=== PATIENT | male | born 1990 | race Caucasian/White ===

== ENCOUNTER 2016-07-18 03:19 | Emergency (ER) | payer OTHER ==
[~2016-07-18] VITALS: Ht 157.5 cm; Wt 65.9 kg
[~2016-07-18 03:19] MED LIST: SULF1TAB7 PO
[2016-07-18 03:25] VITALS: BP 134/77; PULSE 71; RESP 16; O2SAT 99
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
[2016-07-18] MEDS ORDERED: 0.9% Sodium Chloride 1,000 ML IV ONE (03:44)
[2016-07-18] MEDS ORDERED: HYDROmorphone 1 mg/mL Inj IVPUSH PRN (03:45)
[2016-07-18] MEDS ORDERED: Pantoprazole 4 mg/mL 10 mL Inj IVPUSH ONE (03:45)
[2016-07-18] MEDS ORDERED: Alum-Mag Hydrox-Simeth 30 mL Suspension PO ONE (03:45)
[2016-07-18] MEDS ORDERED: Ondansetron 2 mg/mL 2 mL Inj IVPUSH ONE (03:45)
[2016-07-18 03:55] LABS: BASOPHILS % (AUTO) 0.2 % (0-3); EOSINOPHILS % (AUTO) 1.5 % (0-5); MONOCYTES % (AUTO) 8.1 % (4-12); Mean Corpuscular Hemoglobin 30.3 pg (27.0-35.0); Mean Corpuscular Volume 88.8 fL (81-100); NEUTROPHILS % (AUTO) 62.3 % (40-74); Platelet Count 303 bil/L (150-400)
[2016-07-18 04:15] LABS: INR 0.87 ratio
[2016-07-18 04:20] LABS: Magnesium 2.1 mg/dL (1.6-2.6)
[2016-07-18] MEDS ORDERED: OMEP20TA86 PO (05:25)
[2016-07-18] MEDS ORDERED: ONDA8TAB10 PO (05:25)
[2016-07-18 05:53] VITALS: BP 122/84; PULSE 62; RESP 24; O2SAT 98
== END 2016-07-18 05:54 | disposition home or self-care (01) ==
LOC: SED 03:19
DX: K29.70 Gastritis, unspecified, without bleeding (principal); F17.200 Nicotine dependence, unspecified, uncomplicated; J45.909 Unspecified asthma, uncomplicated; Z59.0 Homelessness; Z88.0 Allergy status to penicillin; Z88.6 Allergy status to analgesic agent; Z88.8 Allergy status to other drugs, medicaments and biological substances
CPT/HCPCS: 36415; 80053; 83690; 83735; 85025; 85610; 96374; 96375; 99284; J1170; J2405; J7030

== ENCOUNTER 2017-04-04 13:58 | Emergency (ER) | payer OTHER ==
[~2017-04-04] VITALS: Ht 157.5 cm; Wt 63.6 kg
[~2017-04-04 13:58] MED LIST changes: +OMEP20TA86 PO; +ONDA8TAB10 PO
[2017-04-04 14:00] VITALS: BP 130/65; PULSE 92; RESP 18; O2SAT 99
--- NOTE | 2017-04-04 15:14 | ED.REPORT ---
HPI-Extremity Problem Upper Date of Service Apr 04, 2017 ED Provider: Kandace Mortensen History of Present Illness: seen at urgent care yesterday started on bactrim. feels the area on his arm are abscesses. Was only given robaxin. Last used meth 2 days ago Nursing Notes Stated Complaint: LEFT ARM PAIN Chief Complaint: Extremity Trauma Nursing Notes Reviewed: Yes Allergies: Coded Allergies: Shellfish (Verified Allergy, Severe, "will kill me", 07/18/16) Penicillins (Verified Allergy, Intermediate, rash, 07/18/16) aspirin (Verified Allergy, Intermediate, rash, 07/18/16) naproxen (Verified Allergy, Intermediate, rash, 07/18/16) ibuprofen (Verified Allergy, Unknown, 07/18/16) serious migraine Scheduled Omeprazole (Omeprazole) 20 Mg Tablet.dr 20 MG PO BID Sulfamethoxazole/Trimeth 800-160 mg (Bactrim DS) 1 Each Tablet 1 EACH PO BID Scheduled PRN Ondansetron ODT (Ondansetron ODT) 8 Mg Tab.rapdis 8 MG PO QID PRN PRN For Nausea General Time Seen by MD: 14:58 Chief Complaint Other (abrasions on arms) Hx Obtained From: Patient Onset Occurred: More than a week ago... (1 month) Symptom Duration: Since onset Past Medical History Past Medical History Asthma Chronic back pain Past Surgical History denies Family History Noncontributory Smoking History Current Every Day Smoker Social History using drugs 04/04/2017 Alcohol Use: Denies alcohol use Drug Use: Meth Other Social History: Local resident Occupation homeless 06/29/2016 Ambulatory Status Independent Review of Systems Basic Review of Systems Eyes: Vision NL, No discharge Hematologic: No bleeding, No bruising Psychiatric: Normal thought content Physical Exam Initial Vital Signs Vital Signs (First) Date Time Temp Pulse Resp B/P Pulse Ox O2 Delivery O2 Flow Rate FiO2 04/04/17 14:00 36.6 92 18 130/65 99 Room Air Initial VS: Reviewed, Vital signs normal General/Constitutional: Well-developed, Well-nourished Head / Eyes: Atraumatic, Normocephalic, PERRL ENT: Mucous membranes moist, Conjunctiva normal, No scleral icterus Neck: Supple, Non-tender, Full range of motion Respiratory: Breath sounds normal, Clear to auscultation, No respiratory distress Cardiovascular: Regular rate & rhythm, Heart sounds normal, Intact distal pulses Abdomen / GI: Soft, Non-tender, No guarding, No rebound, No distention Back: No CVA tenderness Lymphatic: No lymphadenopathy Lower Extremities: Vascular intact, Neuro intact, No swelling, No tenderness Skin: Warm, Dry, No cyanosis Neurologic: Alert, Oriented, Nonfocal Psychiatric: Mood/affect normal, Behavior normal, Normal thought content General/Constitutional: Awake, Alert, No acute distress sleeping in the c[place]ir but wakes with stimulus Respiratory / Chest: Atraumatic, Breath sounds NL, Breath sounds = bilat, No respiratory distress Cardiovascular: Heart rate NL, Regular rhythm, Heart sounds NL, No gallop left arm has abrasion on upper ar, right arm has abrasion at wrist area. No active bleeding, no erthyma, no sign of infection. Has full range of motion, sensation intact distally, cap refill less than 2 sec. Interpretation & Diagnostics Lab Results Interpretation Result Diagram: 04/04/17 1540 04/04/17 1540 Test 04/04/17 15:40 White Blood Count 8.4th/mm3 (3.8-10.1) Red Blood Count 4.56mil/mm3 (4.40-5.80) Hemoglobin 13.9g/dL (13.8-17.2) Hematocrit 40.6% (41.0-50.0) Mean Corpuscular Volume 89.0fL (81-100) Mean Corpuscular Hemoglobin 30.5pg (27.0-35.0) Mean Corpuscular Hemoglobin Concent 34.2% (32.0-37.0) Red Cell Distribution Width 12.7% (12.3-15.4) Platelet Count 273bil/L (150-400) Neutrophils (%) (Auto) 61.0% (40-74) Lymphocytes (%) (Auto) 29.3% (14-46) Monocytes (%) (Auto) 7.6% (4-12) Eosinophils (%) (Auto) 1.5% (0-5) Basophils (%) (Auto) 0.4% (0-3) Sodium Level 139mEq/L (134-144) Potassium Level 4.3mEq/L (3.5-5.2) Chloride Level 104mEq/L (97-108) Carbon Dioxide Level 22mmol/L (18-29) Blood Urea Nitrogen 14mg/dL (6-20) Creatinine 0.77mg/dL (0.76-1.27) Estimat Glomerular Filtration Rate 129mL/min (>59) Glucose Level 114mg/dL (60-99) Calcium Level 8.5mg/dL (8.5-10.1) Total Bilirubin 0.2mg/dL (0.0-1.2) Aspartate Amino Transf (AST/SGOT) 15U/L (0-50) Alanine Aminotransferase (ALT/SGPT) 17U/L (0-44) Alkaline Phosphatase 65U/L (25-150) Total Protein 6.6g/dL (6.4-8.4) Albumin 3.6g/dL (3.4-5.0) Hold Murray Top Tube Received (Received) Re-Eval/Medical Decision Med Decision/Clinical Course 26 year old presents to the ER for evualation of his "abscesses" States seen at the walk in clinic and only given robaxin. The areas in question are abrasions. No sign of infection. Labs are normal. No sign of compartment syndrome or sepsis Discharge & Departure Impression: Primary Impression: Abrasion Additional Impression: Drug abuse Disposition: Home Patient Instructions: Abrasion (ED) Additional Instructions: The areas on your arms at this time are not abscess. They are abrasions where the skin has been rubbed off. Use bactroban to the sites 2 to 3 times a day. You are also being provided some lidocaine gel to help with the discomfort. Opiates are not indicated for this. Your labs are normal. Please establish in primary care, consider the residency clinic. Please keep all the appointments that you need to get housing. Referrals: [facility] EDSupervising Provider for APC: Jase Huffman MD Attending Statement I saw and evaluated the patient in conjunction with the FLIPPING MACHINE OPERATOR. I agree with the plan and findings as documented above. In brief, 26-year-old male with a history of IV drug abuse presenting to the ED for evaluation lesion to his arm. Well appearing, no acute distress. Nonlabored respirations. Good peripheral perfusion. RRR. No fluctuance or induration, mild cellulitis. No SI/HI. Does not seem consistent with abscess. Given above, plan discharge home w/ careful return precautions, antibiotics, close outpatient follow up. Patient agreeable to plan as stated, no further questions. copies to: [facility] Kandace Mortensen Apr 04, 2017 15:14 Jase Huffman MD Apr 04, 2017 15:27
[2017-04-04] MEDS ORDERED: Mupirocin 2% 22 Gm Ointment TOPICAL ONE (15:30)
[2017-04-04 15:58] LABS: BASOPHILS % (AUTO) 0.4 % (0-3); EOSINOPHILS % (AUTO) 1.5 % (0-5); MONOCYTES % (AUTO) 7.6 % (4-12); Mean Corpuscular Hemoglobin 30.5 pg (27.0-35.0); Platelet Count 273 bil/L (150-400)
[2017-04-04 16:28] VITALS: BP 125/80; PULSE 86; RESP 18; O2SAT 98
== END 2017-04-04 16:29 | disposition home or self-care (01) ==
LOC: SED 13:58
DX: S40.812A Abrasion of left upper arm, initial encounter (principal); S40.811A Abrasion of right upper arm, initial encounter; X58.XXXA Exposure to other specified factors, initial encounter; Y93.89 Activity, other specified; Y92.89 Other specified places as the place of occurrence of the external cause; Y99.8 Other external cause status; F19.10 Other psychoactive substance abuse, uncomplicated; J45.909 Unspecified asthma, uncomplicated; F17.200 Nicotine dependence, unspecified, uncomplicated; Z88.0 Allergy status to penicillin; Z88.6 Allergy status to analgesic agent; Z91.013 Allergy to seafood